=== PATIENT | male | born 1970 | race Caucasian/White ===

== ENCOUNTER → 2019-06-17 07:52 | Day surgery (SDC) | payer OTHER ==
--- NOTE | 2019-06-17 11:14 | NUR ---
PATIENT PROCEDURE CANCELLED DUE TO NO COLON PREP PER PATIENT RECORD. PATIENT DISCHARGED TO [facility]DS [facility]ARE.
== END | disposition home or self-care (01) ==
LOC: D.OPS 07:52
PROVIDERS: ATTEND Surgery
DX: R19.5 Other fecal abnormalities (principal); Z53.9 Procedure and treatment not carried out, unspecified reason